=== PATIENT | female | born 1945 | race Caucasian/White ===

== ENCOUNTER → 2024-01-28 12:43 | Outpatient (REF) | payer MEDICARE, SELFPAY ==
[2024-01-28 16:07] LABS: % Basophils 0.5 % (0-2); % Eosinophils 0.9 % (0-6); % Immature Granulocytes 0.3 % (0-0.5); % Lymphocytes 15.2 % (20.5-51.1); % Monocytes 6.6 % (1.7-9.3); % Neutrophils 76.5 % (42.2-75.2); Absolute Eosinophils 0.1 10^3/uL (0-0.7); Absolute Lymphocytes 1.2 10^3/uL (1.2-3.4); Absolute Monocytes 0.5 10^3/uL (0.1-0.6); Absolute Neutrophils 5.9 10^3/uL (1.4-6.5); Hemoglobin 13.5 g/dL (12.0-16.0); Mean Corp Hgb Conc. 33.8 g/dL (33.0-37.0); Mean Corpuscular Hgb 28.3 pg (27.0-31.0); Mean Corpuscular Volume 83.9 fL (81.0-99.0); Mean Platelet Volume 9.9 fL (7.4-10.4); Nucleated Red Blood Cells % 0 %; Platelet Count 328 10^3/uL (130-400); Red Blood Cell Count 4.77 10^6/uL (4.20-5.40); Red Cell Dist. Width 13.9 % (11.5-14.5); White Blood Cell Count 7.7 10^3/uL (4.8-10.8)
[2024-01-28 16:34] LABS: ALT (SGPT) 14 U/L (0-35); AST (SGOT) 21 U/L (14-36); Albumin 4.6 g/dl (3.5-5.0); Alkaline Phosphatase 96 U/L (38-126); Blood Urea Nitrogen 14 mg/dl (7-17); Calcium 9.6 mg/dl (8.4-10.2); Carbon Dioxide 29 mmol/L (22-30); Chloride 101 mmol/L (98-107); Glucose 101 mg/dl (70-99); Sodium 138 mmol/L (135-145); Total Bilirubin 0.9 mg/dl (0.2-1.3); Total Cholesterol 200 mg/dl (50-199); Total Protein 7.2 g/dl (6.3-8.2); Triglyceride 89 mg/dl (10-149); Very Low Density Lipoprotein 17 mg/dl (0-30); eGFR > 60.00
[2024-01-28 16:45] LABS: HDL Cholesterol 113 mg/dl; LDL Cholesterol, Calculated 70 mg/dl
[2024-01-28 16:59] LABS: TSH 1.01 uIU/ml (0.47-4.68)
== END ==
LOC: HWLAB 12:43
PROVIDERS: ATTENDING PHYSICIAN Internal Medicine
DX: D17.71 Benign lipomatous neoplasm of kidney (principal); I10 Essential (primary) hypertension; Z00.00 Encounter for general adult medical examination without abnormal findings
CPT/HCPCS: 36415; 80053; 80061; 84443; 85025

== ENCOUNTER → 2024-02-09 13:23 | Outpatient (REF) | payer MEDICARE, SELFPAY | LOC: HWRAD 13:23 | PROVIDERS: ATTENDING PHYSICIAN Radiology Vascular & Interventional Radiology; FAMILY PHYSICIAN Internal Medicine; REFERRING PHYSICIAN Specialist | DX: Z98.890 Other specified postprocedural states (principal) | CPT/HCPCS: 74177; Q9967 ==

== ENCOUNTER 2024-04-12 11:10 | Emergency (ER) | payer MEDICARE, SELFPAY ==
--- NOTE | 2024-04-12 12:19 | ED.GENMED ---
History of Present Illness
General
Chief Complaint: Musculo-Skeletal Complaint
Source: patient
Exam Limitations: none
Time Seen by Provider: 04/12/24 11:47
Nursing documentation reviewed up to this point in time: agreed with
History of Present Illness
History of Present Illness:
78 y/o F fairly healthy
on no meds
here with R hip pain and swelling and right shoudler pain and limited ROM after falling yesterday
while wearing flip flopws
pt says tiw as wet when she was walking and she slid and tried to avoid hitting her face and landed on her shoulder and hip
she has no head pain, neck pain, abdominal pain, flank pain, back pain
she was able to get herself up and has been weight bearing despite large hematoma on right lateral thigh
no shortening of her hip
shoulder is much more painful
Past History
Past History
ED Past Medical History: None
Social History
Tobacco: Non-smoker
Review of Systems
Review of Systems
Allergies reviewed?: Yes
All Other Systems: Not applicable
Phy Exam
Physical Exam
Physical Exam:
GENERAL: Alert , in no apparent distress
HEAD: NCAT
NECK: no midline tenderness, active ROM intact, no paraspinal muscle tenderness;
EYE: pupils equal and reactive, EOMs intact.
ENT: o/p clr, mmm. no hemotympanum
CARDIAC: Regular rate and rhythm, no edema
LUNGS: Clear breath sounds bilaterally, no acute respiratory distress, no wheezes/rales/rhonchi
ABDOMEN: Soft, without focal tenderness, no r/g, no cvat
NO FLANK TENDERNESS
NEUROLOGICAL: Alert and oriented, no focal neuro deficits, CN intact, 5/5 strength, sensation intact
SKIN: Warm and dry,
MUSCULOSKELETAL: right shoulder swelling, tenderness and limited ROM
elbow and forearm/rwrist normal
right hip notnender but lateral proximal thigh is swollen and ecchymotic
i can still flex the hip and pt has pain with flexion pains 30 degrees and rotation
small bruise atnerior knee but nontender full rom of knee
PSYCH: Normal and appropriate interaction.
Course
Orders/Labs/Results
Orders:
Orders
04/12/24 12:38
CR Shoulder, Trauma - Right Urgent
Comment:
Reason For Exam: fall right shoulder pain
Hip, Right 2-3 Views [CR Hip - RT w/wo Pel 2-3 Vw*] Urgent
Comment:
Reason For Exam: fall right hip pain
Include a pelvis x-ray?: Yes
Vital Signs
Initial and Last Documented VS:
Initial Vital Signs
Temp Pulse Resp Pulse Ox
98.0 F 92 16 98
04/12/24 11:15 04/12/24 11:15 04/12/24 11:15 04/12/24 11:15
Last Documented Vital Signs
Temp Pulse Resp BP Pulse Ox
98.0 F 74 18 166/85 96
04/12/24 11:15 04/12/24 14:29 04/12/24 12:44 04/12/24 14:29 04/12/24 14:29
MDM/Problems Addressed
Differential Diagnosis Includes:
fracture, contusion, hematoma
MDM/Problems Addressed:
78 y/o F
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 menard to be waware in case we should image it; she has no back or belly pain; i spoke with nanda gallegos whow as environment artist
his thoughts were that since the area significantly shrank on previous imaging a few months ago after embolization and pt doesn' thave symptoms of pain there, that reimaging not necessary
pt will be in sling for her shoulder fracture
d/w dr. head
f/u in the office
*Critical Care Note
Total Time (30-74mins, 75-104mins- exclusive of procedures): Not Applicable
ED Attending Note
-
Portions of this chart may have been created with voice recognition software.� Occasional wrong word or��sound alike� substitutions may have occurred due to the inherent limitations of voice recognition software.
Discharge Plan
Departure
Patient Disposition: Home (Routine Discharge)
Date of Disposition: 04/12/24
Time of Disposition: 14:04
Patient with high blood pressure during this ER visit?: Yes
Condition: Fair
Covid-19: Not Applicable
Discharge Problem:
Fracture of right shoulder, Contusion of hip, Fall
Instructions: Contusion (DC), How to Use a Shoulder Sling, Upper Arm Fracture ED
Referrals:
Kevin Joyce MD [Active] - Follow up in 5-7 days (ORTHOPEDICS)
Leeroy Mendes MD [Family Provider] -
Activity Restrictions/Additional Instructions:
YOU HAVE A FRACTURE IN YOUR RIGHT SHOULDER
KEEP THE SLING ON
ICE OFF AND ON
TYLENOL 3 TIMES A DAY FOR PAIN NEEDED
YOUR XRAYS OF YOUR HIP DO NOT APPEAR TO HAVE A FRACTURE
WE WILL CALL YOU IF THE RADIOLOGIST SEES SOMETHING ABNORMAL
ICE OFF AND ON TO YOUR THIGH
FOLLOW UP WITH DR. JOYCE THIS WEEK OR NEXT
RETURN FOR ANY CONCENRS.
Interventions
Interventions:
*Risk Screen - Suicide Last Done: 04/12/24 14:59
*General Assessment Last Done: 04/12/24 14:59
*Neglect/Abuse Screening Last Done: 04/12/24 14:59
*ED COVID-19 Vaccine History Last Done: 04/12/24 11:15
*Nursing Disposition Last Done: 04/12/24 14:59
ED-Musculoskeletal Assessment Last Done: 04/12/24 13:23
Discharge Date and Time
Discharge Date/Time: 04/12/24 15:02
Print Language: ESTONIAN
[2024-04-12 12:44] VITALS: BP 179/97
[2024-04-12 14:29] VITALS: BP 166/85
== END 2024-04-12 15:02 | disposition home or self-care (01) ==
LOC: EMR 11:10
PROVIDERS: EMERGENCY PHYSICIAN Emergency Medicine; FAMILY PHYSICIAN Internal Medicine
DX: S42.291A Other displaced fracture of upper end of right humerus, initial encounter for closed fracture (principal); S70.01XA Contusion of right hip, initial encounter; W01.0XXA Fall on same level from slipping, tripping and stumbling without subsequent striking against object, initial encounter
CPT/HCPCS: 99283; 73030; 73502

== ENCOUNTER → 2025-01-25 12:55 | Outpatient (REF) | payer MEDICARE, SELFPAY ==
[2025-01-25 15:54] LABS: % Eosinophils 1.7 % (0-6); % Immature Granulocytes 0.3 % (0-0.5); % Lymphocytes 16.7 % (20.5-51.1); % Monocytes 7.5 % (1.7-9.3); % Neutrophils 72.8 % (42.2-75.2); Absolute Basophils 0.1 10^3/uL (0-0.2); Absolute Eosinophils 0.1 10^3/uL (0-0.7); Absolute Lymphocytes 1.2 10^3/uL (1.2-3.4); Absolute Monocytes 0.5 10^3/uL (0.1-0.6); Absolute Neutrophils 5.1 10^3/uL (1.4-6.5); Hematocrit 42.3 % (37.0-47.0); Hemoglobin 14.2 g/dL (12.0-16.0); Mean Corp Hgb Conc. 33.6 g/dL (33.0-37.0); Mean Corpuscular Hgb 28.7 pg (27.0-31.0); Mean Corpuscular Volume 85.5 fL (81.0-99.0); Mean Platelet Volume 9.7 fL (7.4-10.4); Nucleated Red Blood Cells % 0 %; Platelet Count 312 10^3/uL (130-400); Red Blood Cell Count 4.95 10^6/uL (4.20-5.40); Red Cell Dist. Width 13.4 % (11.5-14.5); White Blood Cell Count 7.1 10^3/uL (4.8-10.8)
[2025-01-25 16:12] LABS: ALT (SGPT) 14 U/L (0-35); AST (SGOT) 19 U/L (14-36); Albumin 4.8 g/dl (3.5-5.0); Alkaline Phosphatase 83 U/L (38-126); Blood Urea Nitrogen 16 mg/dl (7-17); Calcium 10.1 mg/dl (8.4-10.2); Carbon Dioxide 30 mmol/L (22-30); Chloride 101 mmol/L (98-107); Glucose 103 mg/dl (70-99); Potassium 4.2 mmol/L (3.5-5.1); Sodium 140 mmol/L (135-145); Total Cholesterol 223 mg/dl (50-199); Total Protein 7.5 g/dl (6.3-8.2); Triglyceride 87 mg/dl (10-149); Very Low Density Lipoprotein 17 mg/dl (0-30); eGFR > 60.00
[2025-01-25 16:22] LABS: HDL Cholesterol 115 mg/dl; LDL Cholesterol, Calculated 91 mg/dl
[2025-01-25 16:43] LABS: TSH 1.95 uIU/ml (0.47-4.68)
== END ==
LOC: HWLAB 12:55
PROVIDERS: ATTENDING PHYSICIAN Internal Medicine
DX: E04.1 Nontoxic single thyroid nodule (principal); E78.5 Hyperlipidemia, unspecified; R53.83 Other fatigue
CPT/HCPCS: 36415; 80053; 80061; 84443; 85025

== ENCOUNTER → 2025-02-11 13:38 | Outpatient (REF) | payer MEDICARE, SELFPAY | LOC: HWRAD 13:38 | PROVIDERS: ATTENDING PHYSICIAN Specialist; FAMILY PHYSICIAN Internal Medicine; REFERRING PHYSICIAN Radiology Vascular & Interventional Radiology | DX: D17.9 Benign lipomatous neoplasm, unspecified (principal) | CPT/HCPCS: 74176 ==

== ENCOUNTER → 2025-06-07 13:46 | Outpatient (REF) | payer MEDICARE, SELFPAY | LOC: HWWDC 13:46 | PROVIDERS: ATTENDING PHYSICIAN Nurse Practitioner | DX: Z12.31 Encounter for screening mammogram for malignant neoplasm of breast (principal) | CPT/HCPCS: 77063; 77067 ==